=== PATIENT | female | born 1980 | race Caucasian/White ===

== ENCOUNTER 2016-09-07 14:22 | Day surgery (SDC) | payer MEDICAID ==
[~2016-09-07] VITALS: Ht 147.3 cm; Wt 57.0 kg
[2016-09-07] VITALS (12 sets, daily range): BP systolic 115–142; BP diastolic 42–82; PULSE 60–88; RESP 15–22; Ht 147.3 cm; Wt 57.0 kg
[~2016-09-07 14:22] MED LIST: LACTATED RINGER'S 1,000 ML IV SCH; PREN-46 PO; PREN1TAB49
[2016-09-07 15:36] LABS: ADD SCAN DIFF NO
[2016-09-07 15:39] LABS: BASOPHILS % 0.6 % (0.0-2.0); EOSINOPHILS # 0.3 10^3/ul (0.0-0.5); EOSINOPHILS % 4.8 % (0.0-7.0); HEMATOCRIT 38.5 % (37.0-47.0); HEMOGLOBIN 13.1 g/dl (12.0-16.0); LYMPHOCYTES # 1.5 10^3/ul (0.8-2.9); LYMPHOCYTES % 23.8 % (15.0-51.0); MEAN CORPUSCULAR HEMOGLOBIN 33.3 pg (29.0-33.0); MEAN PLATELET VOLUME 9.3 fl (7.4-10.4); MONOCYTE # 0.4 10^3/ul (0.3-0.9); NEUTROPHIL # 4.2 10^3/ul (1.6-7.5); NEUTROPHILS % 64.6 % (39.0-77.0); PLATELET COUNT 169 10^3/UL (140-415); RED BLOOD COUNT 3.93 10^6/ul (4.20-5.40); RED CELL DISTRIBUTION WIDTH 12.7 % (11.5-14.5); WHITE BLOOD COUNT 6.5 10^3/ul (4.8-10.8)
[2016-09-07] MEDS ORDERED: BUPIVACAINE 0.5% (SDV) 30 ML INJ ONE (16:43)
[2016-09-07] MEDS ORDERED: METOCLOPRAMIDE 10 MG INJ IV PRN (17:00)
[2016-09-07] MEDS ORDERED: ONDANSETRON 4 MG INJ IV PRN (17:00)
[2016-09-07] MEDS ORDERED: MIDAZOLAM 1 MG/ML 2 ML INJ IV PRN (17:00)
[2016-09-07] MEDS ORDERED: DIPHENHYDRAMINE 50 MG INJ IV PRN (17:00)
[2016-09-07] MEDS ORDERED: LABETALOL HCL 20MG INJ IV PRN (17:00)
[2016-09-07] MEDS ORDERED: MEPERIDINE 25 MG INJ IV PRN (17:00)
[2016-09-07] MEDS ORDERED: FENTAnyl 50 MCG/ML VIAL IV PRN ×2 (17:00)
[2016-09-07] MEDS ORDERED: morphine (1 MG/ML) 10ML SYRINGE IV PRN ×2 (17:00)
[2016-09-07] MEDS ORDERED: EPHEDrine SULFATE 50 MG/5 ML SYG IV PRN (17:00)
[2016-09-07] MEDS ORDERED: hydrALAzine 20 MG INJ IV PRN (17:00)
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
[2016-09-07] MEDS ORDERED: GLYCOPYRROLATE 0.4 MG INJ ONE ×2 (17:11→18:13)
[2016-09-07] MEDS ORDERED: MEPERIDINE 100 MG INJ ONE (17:11)
[2016-09-07] MEDS ORDERED: ROCURONIUM 50 MG INJ ONE (17:11)
[2016-09-07] MEDS ORDERED: LIDOCAINE 2% (SDV) 5 ML INJ ONE (17:11)
[2016-09-07] MEDS ORDERED: SUCCINYLCHOLINE CHLORIDE 100 MG/5 ML SYG IV ONE (17:11)
[2016-09-07] MEDS ORDERED: PROPOFOL 20 ML ONE (17:11)
[2016-09-07] MEDS ORDERED: NEOSTIGMINE 3 MG/3 ML SYRINGE ONE (17:11)
[2016-09-07] MEDS ORDERED: METOCLOPRAMIDE 10 MG INJ ONE (17:23)
[2016-09-07] MEDS ORDERED: ONDANSETRON 4 MG INJ ONE (17:23)
[2016-09-07] MEDS ORDERED: BUPIVACAINE 0.25% (MPF) 30 ML INJ ONE (17:29)
[2016-09-07] MEDS ORDERED: CEFAZOLIN 1 GM INJ ONE (17:33)
[2016-09-07] MEDS ORDERED: LACTATED RINGER'S 1,000 ML IV SCH (18:21)
[2016-09-07] MEDS ORDERED: KETOROLAC 60 MG INJ IM STA (18:21)
[2016-09-07] MEDS ORDERED: BUTORPHANOL 2 MG INJ IM ONE ×2 (18:30→19:00)
[2016-09-07] MEDS ORDERED: DOXYCYCLINE 100 MG TAB PO ONE (18:30)
--- NOTE | 2016-09-07 18:39 | OPR ---
Operative Report Planned Procedure Procedure date Sep 07, 2016 Procedure(s) bilateral tubal ligation via mini laparotomy Performed by: ADELINE MEDEIROS MD Anesthesiologist: TRINITY HUGGINS MD Pre-procedure diagnosis multiparity with desire for sterilization Anesthesia Type: general Procedure Description The patient was placed on the OR table in supine position. general anaesthesia was induced. A Daugherty catheter was then inserted into urinary bladder under aseptic condition. under general anaesthesia with the patient in supine position , abdominal area was prepped and draped for usual tubal ligation procedure. Under satisfactory anesthesia, a small incision 2 to 3 cm in length was placed 2 -3 cm lateral to linea nigra, 2 fingerbreadth above and parallel to symphysis of pubis. Incision extended laterally to 2- 3 cm lateral to the linea nigra on either side. Incision was carried down with sharp and blunt dissection until fascia was reached. Anterior recti muscle fascia was incised in the midportion. Incision extended laterally to the border of the skin incision. Peritoneum was visualized. Avoiding bowel or bladder, incision was made in peritoneum, which was extended superiorly. Two [place] retractors were placed inside the incision. Incision was brought up to the level of the left fallopian tube. Fallopian tube was raised in the mid portion. A clamp was placed below the fimbriated end, most of the fallopian tube from the mesosalpinx traversing the isthmus portion of the tube. Another clamp was placed just below the first and 0 Vicryl tie was used to tie the mesosalpinx and the stump of the fallopian tube on the proximal side. Another stitch of the same kind was used for adequate hemostasis. Hemostasis appeared to be secure on ligated sites of the fallopian tube. Tube was incised above the stitched area. Same procedure was done on the fallopian tube on opposite side. Hemostasis appeared to be secure on ligated sites of either fallopian tubes. Ovaries were within normal limits. Uterus appears to be normal size. Announcing needle, lap, sponge and instrument count to be correct , abdomen was closed in layers as follows: Peritoneum with running stitches of #2 0 Vicryl, fascia edges of #1 Vicryl, subcutaneous tissue with running stitches of #2 0 Monocryl, and skin was reapproximated using beatriz on the incision. The patient tolerated the procedure very well and was transferred to postanesthesia recovery room in stable and good condition. ESTIMATED BLOOD LOSS: Less than 5 mL. Post-Procedure Post-procedure diagnosis S/P mini lap BTL Findings: Normal R and L fallopian tubes Specimen removed: Yes Specimen description segments of R and L fallopian tubes Complications: None Pt Condition post procedure: stable Physician Certification I, the undersigned physician, hereby certify that I have discussed the procedure described in this consent form with this patient (or the patient's legal fulfillment representative), including: * The risk and benefits of the procedure; * Any adverse reactions that may reasonably be expected to occur; * Any alternative efficacious methods of treatment which may be medically viable ; * The potential problems that may occur during recuperation; * Potential for blood transfusion and associated risks/benefits; and * Any research or economic interest I may have regarding this treatment. I further certify that the patient/legally responsible person was encouraged to ask question and that all questions were answered. ADELINE MEDEIROS MD Sep 07, 2016 18:39
[2016-09-07] MEDS ORDERED: KETOROLAC 30 MG INJ IM STA (18:57)
== END 2016-09-07 20:29 | disposition home or self-care (01) ==
LOC: SDS 14:22
PROVIDERS: ATTEND Obstetrics & Gynecology
DX: Z30.2 Encounter for sterilization (principal)
CPT/HCPCS: 58600; 85025; 86850; 86900; 86901; 88302; J0330; J0595; J0690; J1885; J2175; J2405; J2710; J2765; Z7512; Z7610; J7999

== ENCOUNTER 2018-02-16 09:13 | Emergency (ER) | END 2018-02-16 11:55 | disposition home or self-care (01) ==